=== PATIENT | female | born 1955 | race Caucasian/White ===

== ENCOUNTER 2016-07-12 17:54 | Emergency (ER) | payer OTHER ==
--- NOTE | 2016-07-12 18:30 | EDPHY ---
H & P Smoking Status: Never smoked Time Seen by Provider: 07/12/16 18:01 HPI/ROS: This is a 60-year-old female presenting to the emergency department complaining of a left calf pain. Patient was seen by her primary care physician Dr. Brown through [facility] sent here for ultrasound to rule out DVT. Patient states she has had left knee pain off and on for about 5 weeks has been going to physical therapy, had some initial tenderness to left calf, but over the past week or so the pain has worsened with activity. Denies any trauma, no chest pain or shortness of breath. No other complaints REVIEW OF SYSTEMS: Constitutional: No fever chills, decrease in activity Respiratory: No shortness of breath Cardiac: No chest pain Musculoskeletal: Chronic left knee pain, left calf pain Skin: No rash Neurological: No headache or dizziness (Brenda Brown) Physical Exam: CONSTITUTIONAL: patient appeared well nourished, non-ill appearing and normally developed. No acute distress. Vital signs as documented. HEENT: NCAT. PERRLA. NECK: FROM without pain RESP: Non-labored resp effort NEURO: AAOx3, ambulatory with antalgic gait EXTREMITIES: Left lower extremity FROM with pain at left calf, but no difficulty. Left calf measures 41 cm, right calf 40.5 cm Positive cms intact SKIN: Warm and dry, and no rash or ecchymosis PSYCH: Normal affect, calm, no distress (Brenda Brown) Constitutional: Initial Vital Signs Temperature (C) 36.8 C 07/12/16 17:57 Heart Rate 92 07/12/16 17:57 Respiratory Rate 17 07/12/16 17:57 Blood Pressure 119/93 H 07/12/16 17:57 O2 Sat (%) 93 07/12/16 17:57 O2 Delivery Mode Room Air Allergies/Adverse Reactions: Sulfa (Sulfonamide Antibiotics) Allergy (Verified 07/12/16 17:56) Home Medications: Medication Instructions Recorded NK [No Known Home Meds] 07/12/16 Medical Decision Making - Diagnostics Imaging: Imaging Impressions Extremity Venous Study 07/12/16 18:13 Impression: No deep venous thrombosis left leg. Complex Brown cyst is seen in the popliteal fossa measuring 4.8 x 2.9 x 1.0 cm. Results called and discussed with Brenda Brown NP at 07/12/2016 19:13. ED Course/Re-evaluation: Discussed plan of care the patient: A ultrasound of left calf, patient declined the need for pain medicine at this time. (Brenda Brown) Other Provider: The patient was evaluated and managed by the Physician Pick Pulling Machine Operator/ Nurse Practitioner. My co-signature indicates that I have reviewed this chart and I agree with the findings and plan of care as documented. I am the secondary supervising physician. (Steffi Yi) Departure - Departure Disposition: Home, Routine, Self-Care Clinical Impression: Brown's cyst of knee Condition: Good Instructions: Bakers Cyst (ED) Additional Instructions: 1. Discussed ultrasound results with patient which is a Brown cyst no DVT 2. Decrease prolonged pressure on lower extremity 3. Follow up with your primary care provider Dr. brown next week 5. If any concerns or questions or worsening symptoms return to the ER Referrals: Emily Brown MD [Primary Care Provider] - As per Instructions
[2016-07-12 19:46] VITALS: BP 125/81; PULSE 94; RESP 14; TEMP 97.7; O2SAT 96
== END 2016-07-12 19:44 | disposition home or self-care (01) ==
DX: M71.22 Synovial cyst of popliteal space [Baker], left knee (principal)

== ENCOUNTER → 2018-04-23 | Outpatient (CLI) | payer OTHER | LOC: FIMAGING 15:56 | PROVIDERS: ATTEND Internal Medicine | DX: R10.12 Left upper quadrant pain (principal) ==